=== PATIENT | male | born 1965 | race Caucasian/White ===

== ENCOUNTER 2018-04-13 18:16 | Emergency (ER) | payer MEDICAID ==
[~2018-04-13] VITALS: Ht 167.6 cm; Wt 164.2 kg
[~2018-04-13 18:16] MED LIST: ANTIHYPERTENSIVE PO
[2018-04-13] MEDS ORDERED: DIPH,PERTUSS(ACELL),TET VAC/PF 0.5 ML IM-VACC ONE ×2 (18:30→18:37)
[2018-04-13] MEDS ORDERED: LIDOCAINE-MPF 2% ,5ML ONE (19:19)
[2018-04-13 19:47] VITALS: BP 158/84
== END 2018-04-13 19:50 | disposition home or self-care (01) ==
LOC: ED 19:44
DX: L02.213 Cutaneous abscess of chest wall (principal); L02.01 Cutaneous abscess of face; I10 Essential (primary) hypertension
CPT/HCPCS: 90471; 90715

== ENCOUNTER 2018-12-15 15:22 | Emergency (ER) | payer MEDICAID ==
[~2018-12-15] VITALS: Ht 175.3 cm; Wt 171.2 kg
--- NOTE | 2018-12-15 16:58 | NUR ---
TO ROOM FROM LOBBY. NAD.
[2018-12-15 16:59] LABS: BASOPHILS # (AUTO) 0.13 x10^3/uL (0-0.1); BASOPHILS % (AUTO) 1 % (0-1); EOSINOPHILS # (AUTO) 0.18 x10^3/uL (0-0.4); EOSINOPHILS % (AUTO) 2 % (1-7); LYMPHOCYTES # (AUTO) 1.75 x10^3/uL (1-3.4); LYMPHOCYTES % (AUTO) 20 % (22-44); MD NO; MEAN CORPUSCULAR HEMOGLOBIN 33.4 pg (27.5-34.5); MEAN PLATELET VOLUME 12.4 fL (7.4-10.4); MONOCYTES # (AUTO) 0.53 x10^3/uL (0.2-0.8); MONOCYTES % (AUTO) 6 % (2-9); NEUTROPHILS # (AUTO) 6.31 x10^3/uL (1.8-6.8); NEUTROPHILS % (AUTO) 71 % (42-75); PLATELET COUNT 153 x10^3/uL (130-400); RED BLOOD COUNT 5.09 x10^6/uL (4.38-5.82); RED CELL DISTRIBUTION WIDTH 14.7 % (9.4-14.8)
[2018-12-15 17:18] LABS: ALBUMIN 3.6 g/dL (3.4-5.0); ANION GAP 8 mmol/L (5-15); CHLORIDE 102 mmol/L (98-107); CREATININE 1.08 mg/dL (0.7-1.3)
--- NOTE | 2018-12-15 18:31 | NUR ---
CONTINUE TO AWAIT MRI. PT RESTING COMFORTABLY, NAD. CALL LIGHT WITHIN REACH.
[2018-12-15 19:15] VITALS: BP 132/68
--- NOTE | 2018-12-15 19:30 | NUR ---
PT TO MRI
--- NOTE | 2018-12-15 20:50 | NUR ---
MRI RESULTS BACK,PT FOR RECHECK.
--- NOTE | 2018-12-15 21:37 | NUR ---
PT ABLE TO AMBULATE TO DISCHARGE DESK.
== END 2018-12-15 21:41 | disposition home or self-care (01) ==
LOC: ED 21:39
DX: M48.061 Spinal stenosis, lumbar region without neurogenic claudication (principal); M54.42 Lumbago with sciatica, left side; I10 Essential (primary) hypertension; E11.9 Type 2 diabetes mellitus without complications
CPT/HCPCS: 36415; 72148; 80048; 82040; 85025; 99284

== ENCOUNTER 2019-03-02 15:10 | Emergency (ER) | payer MEDICAID ==
[~2019-03-02] VITALS: Ht 172.7 cm; Wt 169.2 kg
--- NOTE | 2019-03-02 15:25 | NUR ---
THERAPEUTIC RADIOLOGIST: PT FROM LOBBY TO ROOM AT THIS TIME.
--- NOTE | 2019-03-02 15:50 | NUR ---
PT IN ROOM NOW AFTER U/S. PT WAS NOT IN ROOM AT 1525. PT C/O LEFT UPPER THIGH PAIN AT THE FOLD WITH REDNESS. PT ALSO REPORTS CP WORSE WHILE HAVING BM. PT ON MONITOR.
[2019-03-02 16:08] LABS: BASOPHILS # (AUTO) 0.05 x10^3/uL (0-0.1); BASOPHILS % (AUTO) 1 % (0-1); EOSINOPHILS # (AUTO) 0.29 x10^3/uL (0-0.4); EOSINOPHILS % (AUTO) 4 % (1-7); LYMPHOCYTES # (AUTO) 1.89 x10^3/uL (1-3.4); LYMPHOCYTES % (AUTO) 22 % (22-44); MD NO; MEAN CORPUSCULAR HEMOGLOBIN 33.6 pg (27.5-34.5); MEAN CORPUSCULAR HGB CONC 33.2 g/dL (33.2-36.2); MEAN CORPUSCULAR VOLUME 101.1 fL (81-97); MEAN PLATELET VOLUME 12.8 fL (7.4-10.4); MONOCYTES # (AUTO) 0.54 x10^3/uL (0.2-0.8); MONOCYTES % (AUTO) 6 % (2-9); NEUTROPHILS # (AUTO) 5.75 x10^3/uL (1.8-6.8); NEUTROPHILS % (AUTO) 68 % (42-75); PLATELET COUNT 156 x10^3/uL (130-400); RED BLOOD COUNT 5.05 x10^6/uL (4.38-5.82); RED CELL DISTRIBUTION WIDTH 14.3 % (9.4-14.8)
[2019-03-02 16:16] LABS: ALBUMIN 3.7 g/dL (3.4-5.0); ANION GAP 9 mmol/L (5-15); CHLORIDE 103 mmol/L (98-107); CREATININE 1.05 mg/dL (0.7-1.3)
[2019-03-02 16:17] VITALS: BP 144/64
[2019-03-02 16:20] LABS: TROPONIN I < 0.015 ng/mL (0.000-0.045)
[2019-03-02] MEDS ORDERED: FLUCONAZOLE 50 MG TABLET PO ONE (16:30)
[2019-03-02] MEDS ORDERED: FLUCONAZOLE 100 MG TABLET PO ONE (17:00)
== END 2019-03-02 17:08 | disposition home or self-care (01) ==
LOC: ED 16:50
DX: B35.6 Tinea cruris (principal); R21 Rash and other nonspecific skin eruption; E11.9 Type 2 diabetes mellitus without complications; I10 Essential (primary) hypertension
CPT/HCPCS: 36415; 71045; 80048; 82040; 84484; 85025; 85379; 93005; 99284

== ENCOUNTER 2019-05-24 13:17 | Emergency (ER) | payer MEDICAID ==
[~2019-05-24] VITALS: Ht 172.7 cm; Wt 166.6 kg
--- NOTE | 2019-05-24 14:25 | NUR ---
PT REPORTS CONSTIPATION ON AND OFF FOR A FEW WEEKS, HAVING LARGE HARD BM WHEN ABLE TO HAVE A BM, PT REPORTS PAIN WHILE ATTEMPTING TO PASS A BM. PT STATES HAVING SOME NAUSEA.
[2019-05-24 14:50] LABS: BASOPHILS # (AUTO) 0.06 x10^3/uL (0-0.1); BASOPHILS % (AUTO) 1 % (0-1); EOSINOPHILS # (AUTO) 0.26 x10^3/uL (0-0.4); EOSINOPHILS % (AUTO) 3 % (1-7); LYMPHOCYTES # (AUTO) 1.93 x10^3/uL (1-3.4); LYMPHOCYTES % (AUTO) 23 % (22-44); MD NO; MEAN CORPUSCULAR HEMOGLOBIN 33.8 pg (27.5-34.5); MEAN CORPUSCULAR HGB CONC 33.7 g/dL (33.2-36.2); MEAN CORPUSCULAR VOLUME 100.4 fL (81-97); MEAN PLATELET VOLUME 12.3 fL (7.4-10.4); MONOCYTES # (AUTO) 0.52 x10^3/uL (0.2-0.8); MONOCYTES % (AUTO) 6 % (2-9); NEUTROPHILS # (AUTO) 5.66 x10^3/uL (1.8-6.8); NEUTROPHILS % (AUTO) 67 % (42-75); PLATELET COUNT 138 x10^3/uL (130-400); RED BLOOD COUNT 4.89 x10^6/uL (4.38-5.82); RED CELL DISTRIBUTION WIDTH 14.2 % (9.4-14.8)
[2019-05-24 15:00] LABS: ALANINE AMINOTRANSFERASE 25 U/L (12-78); ALBUMIN 3.4 g/dL (3.4-5.0); ANION GAP 11 mmol/L (5-15); CALCIUM 7.9 mg/dL (8.5-10.1); CHLORIDE 103 mmol/L (98-107); CREATININE 0.96 mg/dL (0.7-1.3)
[2019-05-24 15:02] LABS: ALKALINE PHOSPHATASE 79 U/L (45-117); BILIRUBIN,TOTAL 0.5 mg/dL (0.2-1.0); TOTAL PROTEIN 7.3 g/dL (6.4-8.2)
--- NOTE | 2019-05-24 15:41 | NUR ---
CT CALLED PT NEXT TO BE PICKED UP
[2019-05-24 16:46] VITALS: BP 148/82
--- NOTE | 2019-05-24 16:46 | NUR ---
PT UP FOR RECHECK
--- NOTE | 2019-05-24 17:38 | NUR ---
Patient/Caregiver given discharge instructions and they have confirmed that they understand the instructions. Patient ambulatory with steady gait.
== END 2019-05-24 17:39 | disposition home or self-care (01) ==
LOC: ED 17:21
DX: K59.00 Constipation, unspecified (principal); R10.9 Unspecified abdominal pain; I10 Essential (primary) hypertension; E11.9 Type 2 diabetes mellitus without complications
CPT/HCPCS: 36415; 74176; 80053; 85025; 99284

== ENCOUNTER 2019-09-17 18:10 | Emergency (ER) | payer MEDICAID ==
[~2019-09-17] VITALS: Ht 175.3 cm; Wt 165.2 kg
[2019-09-17 19:02] LABS: BASOPHILS # (AUTO) 0.04 x10^3/uL (0-0.1); BASOPHILS % (AUTO) 0 % (0-1); EOSINOPHILS # (AUTO) 0.18 x10^3/uL (0-0.4); EOSINOPHILS % (AUTO) 2 % (1-7); LYMPHOCYTES % (AUTO) 22 % (22-44); MD NO; MEAN CORPUSCULAR HEMOGLOBIN 32.8 pg (27.5-34.5); MEAN CORPUSCULAR HGB CONC 32.7 g/dL (33.2-36.2); MEAN CORPUSCULAR VOLUME 100.1 fL (81-97); MEAN PLATELET VOLUME 11.9 fL (7.4-10.4); MONOCYTES # (AUTO) 0.62 x10^3/uL (0.2-0.8); MONOCYTES % (AUTO) 7 % (2-9); NEUTROPHILS # (AUTO) 6.52 x10^3/uL (1.8-6.8); NEUTROPHILS % (AUTO) 69 % (42-75); PLATELET COUNT 141 x10^3/uL (130-400); RED BLOOD COUNT 5.02 x10^6/uL (4.38-5.82)
--- NOTE | 2019-09-17 19:02 | NUR ---
nil x 1
[2019-09-17 19:12] LABS: ALANINE AMINOTRANSFERASE 30 U/L (12-78); ALBUMIN 3.5 g/dL (3.4-5.0); ANION GAP 9 mmol/L (5-15); CALCIUM 8.1 mg/dL (8.5-10.1); CHLORIDE 102 mmol/L (98-107); CREATININE 0.92 mg/dL (0.7-1.3)
[2019-09-17 19:14] LABS: ALKALINE PHOSPHATASE 90 U/L (45-117); BILIRUBIN,TOTAL 0.5 mg/dL (0.2-1.0); TOTAL PROTEIN 7.3 g/dL (6.4-8.2)
[2019-09-17] MEDS ORDERED: SODIUM CHLORIDE FLUSH 10ML SYR IVF ONE (20:30)
--- NOTE | 2019-09-17 20:50 | NUR ---
TASK RN: IV ATTEMPTED X 2 WITH NO SUCCESS. PT. IS AWARE OF NEED FOR CLEAN CATCH UA. WORKING ON IV PLACEMENT FOR CT.
--- NOTE | 2019-09-17 21:04 | NUR ---
IV ESTABLISHED AND CT AWARE PT. READY FOR CT. PT. SITTING UP IN CHAIR FOR COMFORT. CALL LIGHT IN REACH. ALL SAFETY MEASUERS OBSERVED.
--- NOTE | 2019-09-17 21:15 | NUR ---
PT. TO CT VIA W/C AT THIS TIME.
[2019-09-17] MEDS ORDERED: OMNIPAQUE 350 MG/ML, 150 ML BOTTLE ONE (21:31)
--- NOTE | 2019-09-17 21:53 | NUR ---
EXPLAINED AGAIN TO PT. THAT A CATH UA IS REQUIRED WHEN PT. UNABLE TO PROVIDE URINE SAMPLE. PT. IS REFUSING CAHT UA; DISCUSSED WITH PR. DE LA CRUZ. PER. DR. DE LA CRUZ OK FOR PT. TO HAVE PO FLUIDS. FLUIDS PROVIDED AT THIS TIME. STRONGLY ENCOURAGED PT. TO AT LEAST ATTEMPT UA; PT. STATES "I WENT RIGHT BEFORE I GOT CALLED BACK TO THE ROOM WHILE I WAS WAITING IN THE LOBBY, I JUST CAN'T YET."
--- NOTE | 2019-09-17 22:09 | NUR ---
PT. ABLE TO PROVIDE CLEAN CATCH UA. BS REPORT TO RICARDA TA TO ASSUME PRIMARY CARE OF PT. URINE COLLECTED AND SENT TO LAB.
[2019-09-17 22:15] LABS: MICROSCOPIC NOT IND
[2019-09-17 22:19] LABS: CULTURE INDICATED? NO
[2019-09-17] MEDS ORDERED: KETOROLAC 30 MG/1 ML ONE (22:26)
[2019-09-17] MEDS ORDERED: KETOROLAC 30 MG/1 ML IM ONE (22:30)
[2019-09-17 22:46] VITALS: BP 164/113
== END 2019-09-17 22:48 | disposition home or self-care (01) ==
LOC: ED 21:34
DX: K42.9 Umbilical hernia without obstruction or gangrene (principal); E11.9 Type 2 diabetes mellitus without complications; I10 Essential (primary) hypertension
CPT/HCPCS: 36415; 74021; 74177; 80053; 81003; 85025; 96372; 99284; J1885; Q9967

== ENCOUNTER 2019-10-22 16:13 | Emergency (ER) | payer MEDICAID ==
[~2019-10-22] VITALS: Ht 167.6 cm; Wt 167.3 kg
[2019-10-22 17:04] VITALS: BP 156/91
[2019-10-22 17:38] LABS: BASOPHILS % (AUTO) 1 % (0-1); EOSINOPHILS % (AUTO) 2 % (1-7); LYMPHOCYTES # (AUTO) 1.77 x10^3/uL (1-3.4); LYMPHOCYTES % (AUTO) 16 % (22-44); MD NO; MEAN CORPUSCULAR HEMOGLOBIN 32.8 pg (27.5-34.5); MEAN CORPUSCULAR HGB CONC 33.4 g/dL (33.2-36.2); MEAN CORPUSCULAR VOLUME 98.3 fL (81-97); MEAN PLATELET VOLUME 12.1 fL (7.4-10.4); MONOCYTES # (AUTO) 0.72 x10^3/uL (0.2-0.8); MONOCYTES % (AUTO) 7 % (2-9); NEUTROPHILS # (AUTO) 8.15 x10^3/uL (1.8-6.8); NEUTROPHILS % (AUTO) 75 % (42-75); PLATELET COUNT 124 x10^3/uL (130-400); RED BLOOD COUNT 4.98 x10^6/uL (4.38-5.82); RED CELL DISTRIBUTION WIDTH 13.8 % (9.4-14.8)
[2019-10-22 17:49] LABS: ALBUMIN 3.5 g/dL (3.4-5.0); ANION GAP 7 mmol/L (5-15); CALCIUM 8.2 mg/dL (8.5-10.1); CHLORIDE 102 mmol/L (98-107)
[2019-10-22 17:52] LABS: ALANINE AMINOTRANSFERASE 24 U/L (12-78); ALKALINE PHOSPHATASE 76 U/L (45-117); BILIRUBIN,TOTAL 0.8 mg/dL (0.2-1.0); CREATININE 0.93 mg/dL (0.7-1.3); TOTAL PROTEIN 7.5 g/dL (6.4-8.2)
[2019-10-22] MEDS ORDERED: SODIUM CHLORIDE FLUSH 10ML SYR IVF ONE (19:30)
[2019-10-22] MEDS ORDERED: ONDANSETRON 2MG/ML, 2ML IVPush ONE (19:30)
[2019-10-22] MEDS ORDERED: MORPHINE SULFATE 4 MG/ML, 1ML IVPush PRN (19:30)
[2019-10-22] MEDS ORDERED: OMNIPAQUE 350 MG/ML, 150 ML BOTTLE ONE (19:45)
[2019-10-22] MEDS ORDERED: ONDANSETRON 2MG/ML, 2ML ONE (20:10)
[2019-10-22] MEDS ORDERED: MORPHINE SULFATE 4 MG/ML, 1ML ONE (20:10)
--- NOTE | 2019-10-22 20:18 | NUR ---
PT REFUSING TO GET ON TO [facility], STATES HE DOESN'T WANT PAIN MEDS AT THIS TIME.
[2019-10-22 20:23] LABS: MICROSCOPIC NOT IND
[2019-10-22 20:36] LABS: CULTURE INDICATED? NO
== END 2019-10-22 21:18 | disposition home or self-care (01) ==
LOC: ED 17:30
DX: R10.32 Left lower quadrant pain (principal); R10.12 Left upper quadrant pain; I10 Essential (primary) hypertension; E11.9 Type 2 diabetes mellitus without complications
CPT/HCPCS: 36415; 74021; 74177; 80053; 81003; 83690; 85025; 99284; Q9967

== ENCOUNTER 2020-04-08 08:00 | Outpatient (CLI) | payer MEDICAID ==
[~2020-04-08] VITALS: Ht 170.2 cm; Wt 177.3 kg
[2020-04-08] MEDS ORDERED: NITRO-BID RC (14:33)
[2020-04-08] MEDS ORDERED: METF10007 PO (14:33)
[2020-04-08 16:10] LABS: ALBUMIN 3.4 g/dL (3.4-5.0); ANION GAP 7 mmol/L (5-15); CALCIUM 7.5 mg/dL (8.5-10.1); CHLORIDE 104 mmol/L (98-107)
[2020-04-08 16:13] LABS: ALANINE AMINOTRANSFERASE 24 U/L (12-78); ALKALINE PHOSPHATASE 77 U/L (45-117); BILIRUBIN,TOTAL 0.7 mg/dL (0.2-1.0); CREATININE 0.95 mg/dL (0.7-1.3); TOTAL PROTEIN 7.4 g/dL (6.4-8.2)
== END 2020-04-08 23:59 | disposition home or self-care (01) ==
LOC: STAR 08:00 → EDSTATUS 04-10 11:00
PROVIDERS: ATTEND Internal Medicine Gastroenterology
DX: Z01.818 Encounter for other preprocedural examination (principal); K59.00 Constipation, unspecified; K92.1 Melena; Z88.0 Allergy status to penicillin; Z79.899 Other long term (current) drug therapy
CPT/HCPCS: 36415; 80053; 93005

== ENCOUNTER 2020-06-19 16:18 | Emergency (ER) | payer MEDICAID ==
[~2020-06-19] VITALS: Ht 172.7 cm; Wt 169.0 kg
[~2020-06-19 16:18] MED LIST changes: +METF10007 PO; +NITRO-BID RC
--- NOTE | 2020-06-19 16:50 | NUR ---
THIS IS A 55 YO MALE COMING IN FOR RIGHT LEG PAIN X2 DAYS, WOUND ON BOTTOM OF RIGHT FOOT X1 MONTH THAT HAS NOT HEALED, LEG PAIN TODAY CAUSED PATIENT TO FALL AND HIT HEAD ON TABLE WITH LOC, UNKNWON DURATION OF LOC. PATIENT HAS HX DM AND HTN, AND DIABETIC NEUROPATHY. NO SENSATION NOTED IN BILAT FEET, ALL MONITORING IN PLACE, VSS, NADN AT THIS TIME. CALL LIGHT IN REACH.
--- NOTE | 2020-06-19 17:04 | NUR ---
ERP IN ROOM FOR EVAL
[2020-06-19] MEDS ORDERED: NEOSPORIN OINT. PKT 1 PACKET ONE (17:24)
--- NOTE | 2020-06-19 17:37 | NUR ---
PATIENT TO IMAGING
[2020-06-19 17:55] LABS: BASOPHILS # (AUTO) 0.08 x10^3/uL (0-0.1); BASOPHILS % (AUTO) 1 % (0-1); EOSINOPHILS # (AUTO) 0.18 x10^3/uL (0-0.4); EOSINOPHILS % (AUTO) 2 % (1-7); LYMPHOCYTES # (AUTO) 1.91 x10^3/uL (1-3.4); LYMPHOCYTES % (AUTO) 20 % (22-44); MD NO; MEAN CORPUSCULAR HEMOGLOBIN 32.7 pg (27.5-34.5); MEAN CORPUSCULAR HGB CONC 33.5 g/dL (33.2-36.2); MONOCYTES % (AUTO) 6 % (2-9); NEUTROPHILS # (AUTO) 6.61 x10^3/uL (1.8-6.8); NEUTROPHILS % (AUTO) 71 % (42-75); PLATELET COUNT 151 x10^3/uL (130-400); RED BLOOD COUNT 4.95 x10^6/uL (4.38-5.82); RED CELL DISTRIBUTION WIDTH 14.3 % (9.4-14.8)
--- NOTE | 2020-06-19 17:57 | NUR ---
PATIENT RESTING ON GURNEY, RESPIRATIONS EVEN AND UNLABORED. VSS, NADN AT THIS TIME. AWAITING RESULTS.
[2020-06-19 18:01] LABS: ALBUMIN 3.5 g/dL (3.4-5.0); ANION GAP 9 mmol/L (5-15); CALCIUM 8.1 mg/dL (8.5-10.1); CHLORIDE 104 mmol/L (98-107)
[2020-06-19 18:06] LABS: CREATININE 0.96 mg/dL (0.7-1.3); TROPONIN I < 0.015 ng/mL (0.000-0.045)
--- NOTE | 2020-06-19 18:50 | NUR ---
REPORT GIVEN TO RICARDA MATHEWS. PLAN OF CARE DISCUSSED
[2020-06-19] MEDS ORDERED: BISACODYL 10 MG SUPP PR PRN (19:30)
[2020-06-19] MEDS ORDERED: ACETAMINOPHEN 325 MG TABLET PO PRN (19:30)
[2020-06-19] MEDS ORDERED: NITROGLYCERIN 0.4 MG BOTTLE (25 TABS) SL PRN (19:30)
[2020-06-19] MEDS ORDERED: ONDANSETRON ODT 4 MG PO PRN (19:30)
[2020-06-19] MEDS ORDERED: HEPARIN 5,000 UNITS/ML, 1ML ONE (19:30)
[2020-06-19] MEDS ORDERED: POLYETHYLENE GLYCOL 17 GM PACKET PO PRN (19:30)
[2020-06-19] MEDS ORDERED: HEPARIN 5,000 UNITS/ML, 1ML SQ SCH (19:30)
[2020-06-19] MEDS ORDERED: morphine SULFATE 10 MG/ML, 1ML IVPush PRN (19:30)
--- NOTE | 2020-06-19 19:43 | NUR ---
Pt states he does not want to stay or be admitted inpatient because "he doesn't want to get covid." Education provided to pt on reccomendation to stay for stress test and further testing, and pt states he would like to leave now. ED MD and charge preparation technician made aware
[2020-06-19 20:03] VITALS: BP 126/78
[2020-06-19] MEDS ORDERED: SODIUM CHLORIDE FLUSH 10ML SYR IVF SCH (21:00)
[2020-06-19] MEDS ORDERED: TEMPLATE NON-FORMULARY MED. (Metformin HCl 1,000 MG) PO SCH (21:00)
[2020-06-20] MEDS ORDERED: ASPIRIN 81 MG TABLET EC PO SCH (06:00)
[2020-06-20] MEDS ORDERED: SENNA/DOCUSATE TABLET PO SCH (09:00)
== END 2020-06-19 20:05 | disposition home or self-care (01) ==
LOC: ED 19:26
DX: S00.03XA Contusion of scalp, initial encounter (principal); R07.2 Precordial pain; R55 Syncope and collapse; I10 Essential (primary) hypertension; E11.9 Type 2 diabetes mellitus without complications; E66.01 Morbid (severe) obesity due to excess calories; Z68.43 Body mass index [BMI] 50.0-59.9, adult; W19.XXXA Unspecified fall, initial encounter; Y93.89 Activity, other specified; Y92.098 Other place in other non-institutional residence as the place of occurrence of the external cause; Y99.8 Other external cause status
CPT/HCPCS: 36415; 70450; 71045; 80048; 82040; 82607; 83036; 83880; 84484; 85025; 93005; 96372; 99285; J1644

== ENCOUNTER 2021-04-21 15:26 | Emergency (ER) | payer MEDICAID ==
[~2021-04-21] VITALS: Ht 175.3 cm; Wt 180.0 kg
--- NOTE | 2021-04-21 15:32 | NUR ---
THIS IS A 56 YO M BIB EMS FROM HOME W/ C/O BRIGHT RED BLOODY STOOL X3 WEEKS. PT REPORTS HX OF INTERNAL HEMMRRHOIDS STATING "THEY HAVENT DONE ANYTHING FOR IT". AT BEDSIDE FOR ED EVAL.
[2021-04-21] MEDS ORDERED: SODIUM CHLORIDE FLUSH 10ML SYR IVF ONE (16:00)
[2021-04-21] MEDS ORDERED: ONDANSETRON 2MG/ML, 2ML IVPush ONE (16:00)
[2021-04-21 16:22] LABS: BASOPHILS % (AUTO) 1 % (0-1); EOSINOPHILS % (AUTO) 2 % (1-7); LYMPHOCYTES % (AUTO) 19 % (22-44); MEAN CORPUSCULAR HEMOGLOBIN 33.1 pg (27.5-34.5); MEAN CORPUSCULAR HGB CONC 34.2 g/dL (33.2-36.2); MEAN PLATELET VOLUME 10.6 fL (7.4-10.4); MONOCYTES % (AUTO) 12 % (2-9); NEUTROPHILS % (AUTO) 67 % (42-75); PLATELET COUNT 142 x10^3/uL (130-400); RED BLOOD COUNT 4.38 x10^6/uL (4.38-5.82); RED CELL DISTRIBUTION WIDTH 14.6 % (9.4-14.8)
[2021-04-21 16:24] LABS: ALBUMIN 2.7 g/dL (3.4-5.0); ANION GAP 5 mmol/L (5-15); CALCIUM 7.6 mg/dL (8.5-10.1); CHLORIDE 104 mmol/L (98-107)
[2021-04-21 16:40] LABS: ALANINE AMINOTRANSFERASE 18 U/L (12-78); ALKALINE PHOSPHATASE 97 U/L (45-117); BILIRUBIN,TOTAL 0.6 mg/dL (0.2-1.0); CREATININE 0.83 mg/dL (0.7-1.3); TOTAL PROTEIN 6.9 g/dL (6.4-8.2)
--- NOTE | 2021-04-21 17:09 | NUR ---
Report received from RICARDA Bah. This RN to assume care. Patient sitting in chair as it is more comfortable. Awaiting CT.
[2021-04-21] MEDS ORDERED: MORPHINE SULFATE 4 MG/ML, 1ML ONE (17:45)
[2021-04-21] MEDS ORDERED: ONDANSETRON 2MG/ML, 2ML ONE (17:45)
[2021-04-21] MEDS ORDERED: MORPHINE SULFATE 4 MG/ML, 1ML IVPush ONE (18:30)
--- NOTE | 2021-04-21 18:36 | NUR ---
Patient returned from CT.
[2021-04-21] MEDS ORDERED: OMNIPAQUE 350 MG/ML, 150 ML BOTTLE ONE (18:40)
--- NOTE | 2021-04-21 18:50 | NUR ---
REPORT FROM NELL CHOWDARY
[2021-04-21 19:38] VITALS: BP 130/78
== END 2021-04-21 19:40 | disposition home or self-care (01) ==
LOC: ED 15:42
DX: K64.8 Other hemorrhoids (principal); K62.5 Hemorrhage of anus and rectum; K59.00 Constipation, unspecified; E11.65 Type 2 diabetes mellitus with hyperglycemia; I10 Essential (primary) hypertension
CPT/HCPCS: 36415; 74177; 80053; 85025; 96374; 96375; 99285; J2270; J2405; Q9967

== ENCOUNTER 2021-05-22 19:14 | Emergency (ER) | payer MEDICAID ==
[~2021-05-22] VITALS: Ht 165.1 cm; Wt 164.0 kg
[2021-05-22] MEDS ORDERED: METHOCARBAMOL 750 MG TABLET PO ONE (19:30)
[2021-05-22] MEDS ORDERED: KETOROLAC 30 MG/1 ML IM ONE (19:30)
--- NOTE | 2021-05-22 19:33 | NUR ---
CC OF PAIN IN LT BACK, HIP, AND LEG. SAYS IT HAS BEEN BOTHERING HIM FOR 6-8 MO "BUT NEVER THIS BAD". ALSO HAS C/O CONSTIPATION FROM PAIN, SAYS LAST BM WAS TUESDAY.
--- NOTE | 2021-05-22 19:34 | NUR ---
EMS GAVE 100 MCG FENTANYL AND 4 MG ZOFRAN IV EN ROUTE. PT REPORTS "PAIN IS BETTER BUT STILL 10/10".
[2021-05-22] MEDS ORDERED: KETOROLAC 30 MG/1 ML ONE (19:48)
[2021-05-22] MEDS ORDERED: METHOCARBAMOL 750 MG TABLET ONE (19:48)
[2021-05-22 20:20] LABS: BASOPHILS % (AUTO) 1 % (0-1); EOSINOPHILS % (AUTO) 2 % (1-7); LYMPHOCYTES % (AUTO) 18 % (22-44); MEAN CORPUSCULAR HGB CONC 33.3 g/dL (33.2-36.2); MEAN PLATELET VOLUME 10.8 fL (7.4-10.4); MONOCYTES % (AUTO) 8 % (2-9); NEUTROPHILS % (AUTO) 72 % (42-75); PLATELET COUNT 200 x10^3/uL (130-400); RED BLOOD COUNT 4.78 x10^6/uL (4.38-5.82); RED CELL DISTRIBUTION WIDTH 14.9 % (9.4-14.8)
--- NOTE | 2021-05-22 20:29 | NUR ---
PT STATES HE CANNPT PROVIDE A URINE SAMPLE AT THIS TIME. FIONA HENDERSON AWARE.
[2021-05-22 20:30] LABS: ANION GAP 8 mmol/L (5-15); CALCIUM 8.6 mg/dL (8.5-10.1); CHLORIDE 101 mmol/L (98-107)
[2021-05-22 20:35] LABS: ALANINE AMINOTRANSFERASE 16 U/L (12-78); ALKALINE PHOSPHATASE 92 U/L (45-117); BILIRUBIN,TOTAL 0.5 mg/dL (0.2-1.0); CREATININE 0.99 mg/dL (0.7-1.3); TOTAL PROTEIN 8.1 g/dL (6.4-8.2)
[2021-05-22 20:50] VITALS: BP 122/71
--- NOTE | 2021-05-22 20:51 | NUR ---
TASK RN: PT RESTING IN WHEELCHAIR. STATES HE LIKES IT BETTER THAN THE GURNEY. YAREDN. PT NOTED TO BE 89% RA. PT STATES HE DOES NOT WEAR HOME O2. EDPA NOTIFIED.
--- NOTE | 2021-05-22 21:06 | NUR ---
PT NOW SATING 90% RA. PT STATES HE CANNOT PROVIDE UA SAMPLE AT THIS TIME AND REFUSING STRAIGHT CATH. MATT CLEMENS NOTIFIED.
== END 2021-05-22 23:00 | disposition home or self-care (01) ==
LOC: ED 21:10
DX: K59.00 Constipation, unspecified (principal); M54.42 Lumbago with sciatica, left side; R11.10 Vomiting, unspecified; I10 Essential (primary) hypertension; E11.65 Type 2 diabetes mellitus with hyperglycemia
CPT/HCPCS: 36415; 74018; 80053; 82962; 85025; 96372; 99284; J1885